=== PATIENT | female | born 1980 | race Two or more races ===

== ENCOUNTER 2020-01-26 17:31 | Emergency (ER) | payer OTHER ==
[~2020-01-26] VITALS: Ht 160 cm; Wt 86.2 kg
[2020-01-26] MEDS ORDERED: ATORVASTATIN CA20 MG (17:48)
[2020-01-26] MEDS ORDERED: WELLBUTRIN XL300 MG (17:49)
[2020-01-26] MEDS ORDERED: VISTARIL25 MG (17:49)
[2020-01-26] MEDS ORDERED: RISPERDAL2 MG (17:49)
[2020-01-26] MEDS ORDERED: CARAFATE1 GM PO (22:20)
[2020-01-26] MEDS ORDERED: LEVSIN/SL0.125 MG SL (22:20)
[2020-01-26] MEDS ORDERED: ZOFRAN8 MG PO (22:20)
== END 2020-01-26 22:31 | disposition home or self-care (01) ==
LOC: ER 17:31
DX: K29.70 Gastritis, unspecified, without bleeding (principal)